=== PATIENT | male | born 1970 | race Caucasian/White ===

== ENCOUNTER 2021-10-07 19:10 | Emergency (ER) | payer MEDICAID ==
[~2021-10-07] VITALS: Ht 172.7 cm; Wt 104.3 kg
[2021-10-07 20:06] VITALS: BP 149/87
== END 2021-10-08 01:16 | disposition left against medical advice (07) ==
LOC: ER 19:10
DX: R51.9 Headache, unspecified (principal); I10 Essential (primary) hypertension; Z53.21 Procedure and treatment not carried out due to patient leaving prior to being seen by health care provider